=== PATIENT | female | born 1985 | race Caucasian/White ===

== ENCOUNTER 2020-02-20 12:14 | Emergency (ER) | payer SELFPAY ==
[~2020-02-20] VITALS: Ht 160 cm; Wt 61.7 kg
[2020-02-20 12:25] VITALS: BP 110/54
--- NOTE | 2020-02-20 12:30 | NUR ---
Patient ambulated to bed 5. RN evaluating patient at bedside.
--- NOTE | 2020-02-20 12:44 | NUR ---
c/o redness, swelling, pruritus to eyelids x 2 days s/p applying false eyelashes , pt aox4 , afibrile , denies sob, sce , cbs blf. hx--denies rx--none
--- NOTE | 2020-02-20 13:00 | NUR ---
Dr. Jacinto is evaluating the patient at bedside.
[2020-02-20 13:12] VITALS: BP 110/54
--- NOTE | 2020-02-20 13:13 | NUR ---
Patient discharged with v/s stable. Written and verbal after care instructions given and explained regarding edema. Patient alert, oriented and verbalized understanding of instructions. Ambulatory with steady gait. All questions addressed prior to discharge. ID band removed. Patient advised to follow up with PMD. Rx of prednisone given. Patient educated on indication of medication including possible reaction and side effects. Opportunity to ask questions provided and answered.
== END 2020-02-20 13:13 | disposition home or self-care (01) ==
LOC: MED 12:14
DX: T78.40XA Allergy, unspecified, initial encounter (principal); Z90.49 Acquired absence of other specified parts of digestive tract; X58.XXXA Exposure to other specified factors, initial encounter
CPT/HCPCS: 99283